=== PATIENT | male | born 1980 | race Caucasian/White ===

== ENCOUNTER 2024-07-26 07:55 | Outpatient (REF) | payer MEDICAID, SELFPAY ==
--- NOTE | 2024-07-26 07:28 | SKI_PTH ---
PATIENT: Fab Orourke LOC: [facility] U#:[id number] AGE/SX: 44/M ROOM: RE07/26/[address]: Jose Alberto Lord MD : 1980 BED: DIS: 07/26/2024 SPEC #: [id number] RECD: 07/26/24 17:10 STATUS: JACQUES REAnaly #: [id number] JOSSE: 07/26/24 07:[address]: Jose Alberto Lord DEPT: Surgical Specimen RECD BY: Brandy Shanks Tissues: 1 - SKIN BIOPSY(SHAVE/PUNCH) Procedures: SKIN LEVEL 4 Comments: [id number]
== END 2024-07-26 07:56 | disposition home or self-care (01) ==
LOC: LBN 07:55
PROVIDERS: PCP Nurse Practitioner; Visit Provider Otolaryngology
DX: L11.0 Acquired keratosis follicularis (principal)
CPT/HCPCS: 88305